=== PATIENT | female | born 1975 | race Caucasian/White ===

== ENCOUNTER 2018-05-15 16:35 | Emergency (ER) | payer MEDICAID ==
[~2018-05-15] VITALS: Ht 162.6 cm; Wt 81.8 kg
[~2018-05-15 16:35] MED LIST: METF500T PO
[2018-05-15 17:22] LABS: URINE HCG NEGATIVE (NEG)
[2018-05-15 17:23] LABS: CLARITY,URINE TURBID (Clear); COLOR,URINE YELLOW (Yellow); GLUCOSE, URINE NEGATIVE (Neg); KETONES,URINE TRACE mg/dl (Neg); LEUKOCYTE ESTERASE ,URINE MODERATE (Neg); NITRITES, URINE NEGATIVE (Neg); OCCULT BLOOD,URINE LARGE (Neg); PH,URINE 5.5 (4.8-8.0); PROTEIN,URINE 100 mg/dl (Neg); UA COLLECTION TYPE CLN CATCH MIDSTREAM; UROBILINOGEN,URINE 0.2 E.U/dL (0.2-1.0)
[2018-05-15 17:30] LABS: MUCUS STRANDS FEW /LPF (Neg); SQUAMOUS EPITHELIAL CELL,UR MODERATE /LPF (FEW)
[2018-05-15 17:33] LABS: BACTERIA,URINE FEW /HPF (Neg); WBC,URINE TNTC /HPF (0-4); YEAST MODERATE /HPF (NEGATIVE)
[2018-05-15] MEDS ORDERED: ondansetron 4mg rapidly disintigrating tab PO ONE (18:45)
[2018-05-15] MEDS ORDERED: fluconazole 100mg tablet PO ONE (18:45)
[2018-05-15] MEDS ORDERED: levoFLOXACIN 750MG TABLET PO ONE (18:45)
[2018-05-15] MEDS ORDERED: HYDROcodone/acetaminophen 5mg/325mg tablet PO ONE (18:45)
[2018-05-15 19:15] LABS: URINE AMPHETAMINE SCREEN POSITIVE (Neg); URINE BARBITUATE SCREEN NEGATIVE (Neg); URINE BENZODIAZEPINES SCREEN NEGATIVE (Neg); URINE CANNABINOID SCREEN POSITIVE (Neg); URINE COCAINE SCREEN NEGATIVE (Neg); URINE METHADONE SCREEN NEGATIVE (Neg); URINE OPIATE SCREEN NEGATIVE (Neg); URINE PHENCYCLIDINE SCREEN NEGATIVE (Neg)
[2018-05-15] MEDS ORDERED: LEVO750T21 PO (19:52)
[2018-05-15] MEDS ORDERED: tamsulosin 0.4mg capsule PO ONE (20:00)
[2018-05-15] MEDS ORDERED: CefTRIAXone 1000mg IM Kit (w/lidocaine diluent) IM ONE (20:00)
[2018-05-15] MEDS ORDERED: FLO0.4C PO (20:00)
[2018-05-15 20:14] VITALS: BP 135/78
== END 2018-05-15 20:16 | disposition home or self-care (01) ==
LOC: ER 16:36
DX: N39.0 Urinary tract infection, site not specified (principal); R31.9 Hematuria, unspecified; E11.9 Type 2 diabetes mellitus without complications; F12.10 Cannabis abuse, uncomplicated; Z95.1 Presence of aortocoronary bypass graft
CPT/HCPCS: 74176; 80305; 81001; 81025; 87088; 96372; 99285; J0696

== ENCOUNTER 2020-12-18 16:01 | Emergency (ER) | payer MEDICAID ==
[~2020-12-18] VITALS: Ht 162.6 cm; Wt 77.7 kg
[2020-12-18 16:15] VITALS: BP 115/85
[2020-12-18 16:46] LABS: BASOPHILS # (AUTO) 0.1 X10'3 (0-0.2); BASOPHILS % (AUTO) 0.6 % (0-1); EOSINOPHILS # (AUTO) 0.3 X10'3 (0-0.9); EOSINOPHILS % (AUTO) 3.1 % (0-6); HEMATOCRIT 45.3 % (35.0-45.0); HEMOGLOBIN 15.1 g/dl (12.0-16.0); LYMPHOCYTES # (AUTO) 3.3 X10'3 (1.1-4.8); LYMPHOCYTES % (AUTO) 33.7 % (21-51); MEAN CORPUSCULAR HGB CONC 33.2 g/dL (33.0-36.5); MEAN CORPUSCULAR VOLUME 90.3 FL (78-98); MEAN PLATELET VOLUME 7.7 FL (7.4-10.4); MONOCYTES # (AUTO) 0.9 X10'3 (0-0.9); MONOCYTES % (AUTO) 8.9 % (2-12); NEUTROPHILS # (AUTO) 5.3 X10'3 (1.8-7.7); NEUTROPHILS % (AUTO) 53.7 % (42-75); PLATELET COUNT 477 X10'3 (140-440); RED BLOOD COUNT 5.02 X10'6 (4.20-5.60); RED CELL DISTRIBUTION WIDTH 14.9 % (11.5-14.5); WHITE BLOOD COUNT 9.8 X10'3 (4.5-11.0)
[2020-12-18 17:08] LABS: ALANINE AMINOTRANSFERASE 21 U/L (12-78); ALBUMIN 3.5 G/DL (3.4-5.0); ALBUMIN/GLOBULIN RATIO 0.9 (1.1-1.5); ALKALINE PHOSPHATASE 111 IU/L (46-116); ANION GAP 12 (8-16); ASPARTATE AMINO TRANSFERASE 11 U/L (10-37); BILIRUBIN,TOTAL 0.3 MG/DL (0.1-1.0); BLOOD UREA NITROGEN 14 MG/DL (7-18); BUN/CREATININE RATIO 12.7 (6.6-38.0); CALCIUM 9.4 MG/DL (8.5-10.1); CHLORIDE 103 MMOL/L (99-107); GLUCOSE 135 MG/DL (70-104); LIPASE 52 U/L (73-393); POTASSIUM 4.1 MMOL/L (3.5-5.1); SODIUM 140 MMOL/L (135-145); TOTAL CARBON DIOXIDE 24.7 MMOL/L (24-32); TOTAL PROTEIN 7.4 G/DL (6.4-8.2); eGFR 53 ML/MIN
[2020-12-18 17:11] LABS: CLARITY,URINE CLOUDY (Clear); COLOR,URINE YELLOW (Yellow); GLUCOSE, URINE NEGATIVE (Neg); KETONES,URINE NEGATIVE (Neg); LEUKOCYTE ESTERASE ,URINE LARGE (Neg); NITRITES, URINE NEGATIVE (Neg); OCCULT BLOOD,URINE MODERATE (Neg); PROTEIN,URINE 100 mg/dl (Neg); UROBILINOGEN,URINE 0.2 E.U/dL (0.2-1.0)
[2020-12-18 17:23] LABS: UA COLLECTION TYPE CLN CATCH MIDSTREAM
[2020-12-18 17:24] LABS: SQUAMOUS EPITHELIAL CELL,UR MANY /LPF (FEW)
[2020-12-18 17:25] LABS: RBC,URINE 0-2 /HPF (0-2); WBC,URINE TNTC /HPF (0-4)
[2020-12-18 17:26] LABS: BACTERIA,URINE 3+ /HPF (Neg); MUCUS STRANDS FEW /LPF (Neg); TRANSITIONAL EPI CELLS,URINE FEW /HPF
[2020-12-18 17:38] LABS: URINE HCG NEGATIVE (NEG)
== END 2020-12-18 22:33 | disposition left against medical advice (07) ==
LOC: ER 16:02
DX: R10.9 Unspecified abdominal pain (principal); Z53.21 Procedure and treatment not carried out due to patient leaving prior to being seen by health care provider
CPT/HCPCS: 36415; 80053; 81001; 81025; 83690; 85025

== ENCOUNTER 2021-12-03 03:36 | Inpatient (IN) | payer MEDICAID ==
[~2021-12-03] VITALS: Ht 162.6 cm; Wt 78.6 kg
[2021-12-03] VITALS (17 sets, daily range): BP systolic 99–136; BP diastolic 54–87
[2021-12-03] MEDS ORDERED: heparin 10,000 units/1 ML INJ IV ONE ×2 (03:50→04:00)
[2021-12-03] MEDS ORDERED: aspirin 81mg tab.chew PO ONE (03:50)
[2021-12-03] MEDS ORDERED: heparin 10,000 units/1 ML INJ IV PRN (03:50)
[2021-12-03] MEDS ORDERED: heparin 25,000 UNIT/250ml bag 250 ML IV SCH (03:50)
[2021-12-03 03:52] LABS: BASOPHILS # (AUTO) 0.1 X10'3 (0-0.2); BASOPHILS % (AUTO) 0.7 % (0-1); EOSINOPHILS # (AUTO) 0.2 X10'3 (0-0.9); EOSINOPHILS % (AUTO) 2.3 % (0-6); HEMATOCRIT 35.8 % (35.0-45.0); HEMOGLOBIN 11.5 g/dl (12.0-16.0); LYMPHOCYTES # (AUTO) 4.3 X10'3 (1.1-4.8); LYMPHOCYTES % (AUTO) 40.8 % (21-51); MEAN CORPUSCULAR HEMOGLOBIN 27.2 PG (27.0-31.0); MEAN CORPUSCULAR VOLUME 84.8 FL (78-98); MEAN PLATELET VOLUME 7.7 FL (7.4-10.4); MONOCYTES # (AUTO) 0.9 X10'3 (0-0.9); MONOCYTES % (AUTO) 8.9 % (2-12); NEUTROPHILS # (AUTO) 4.9 X10'3 (1.8-7.7); NEUTROPHILS % (AUTO) 47.3 % (42-75); PLATELET COUNT 445 X10'3 (140-440); RED BLOOD COUNT 4.22 X10'6 (4.20-5.60); RED CELL DISTRIBUTION WIDTH 14.7 % (11.5-14.5); WHITE BLOOD COUNT 10.5 X10'3 (4.5-11.0)
[2021-12-03 04:07] LABS: ALANINE AMINOTRANSFERASE 19 U/L (12-78); ALBUMIN 2.9 G/DL (3.4-5.0); ALBUMIN/GLOBULIN RATIO 0.9 (1.1-1.5); ALKALINE PHOSPHATASE 118 IU/L (46-116); ANION GAP 10 (8-16); ASPARTATE AMINO TRANSFERASE 10 U/L (10-37); BILIRUBIN,TOTAL 0.2 MG/DL (0.1-1.0); BLOOD UREA NITROGEN 14 MG/DL (7-18); BUN/CREATININE RATIO 16.1 (6.6-38.0); CALCIUM 8.1 MG/DL (8.5-10.1); CHLORIDE 109 MMOL/L (99-107); CREATININE 0.87 MG/DL (0.40-0.90); GLUCOSE 160 MG/DL (70-104); POTASSIUM 4.2 MMOL/L (3.5-5.1); SODIUM 140 MMOL/L (135-145); TOTAL CARBON DIOXIDE 21.5 MMOL/L (24-32); TOTAL PROTEIN 6.1 G/DL (6.4-8.2); eGFR 69 ML/MIN
--- NOTE | 2021-12-03 04:08 | NUR ---
Patient recvd 324mg PO aspirin [employer], 81mg aspirin held after discussing with Tommy.
[2021-12-03] MEDS ORDERED: ATOR-2 PO (04:17)
[2021-12-03] MEDS ORDERED: LEVO-144 PO (04:17)
[2021-12-03] MEDS ORDERED: PANT40TA54 PO (04:17)
[2021-12-03] MEDS ORDERED: OXYB-58 PO (04:17)
[2021-12-03] MEDS ORDERED: GLIP10TA11 PO (04:17)
[2021-12-03] MEDS ORDERED: EMPA10TA PO (04:17)
[2021-12-03] MEDS ORDERED: METO25TA6 PO (04:17)
[2021-12-03] MEDS ORDERED: SERT-434 PO (04:17)
[2021-12-03] MEDS ORDERED: METF-438 PO (04:17)
[2021-12-03] MEDS ORDERED: SPIR25TA5 PO (04:17)
[2021-12-03] MEDS ORDERED: LISI2.5T14 PO (04:17)
[2021-12-03] MEDS ORDERED: midazolam 1 mg/ML 2ml injection ONE (04:36)
[2021-12-03] MEDS ORDERED: fentaNYL/PF 50MCG/1 ML 2ML syringe ONE (04:36)
[2021-12-03] MEDS ORDERED: iohexol 350 MG/1 ML 200ml bottle ONE (04:36)
[2021-12-03] MEDS ORDERED: LIDOcaine 1% 30ml preserv. free vial ONE (04:36)
[2021-12-03] MEDS ORDERED: nitroGLYCERIN-Tridil 50MG/D5W 250 ML IV ONE (04:39)
[2021-12-03] MEDS ORDERED: heparin 1,000unit/ml 10ml vial 10 ML ONE (04:39)
[2021-12-03 04:42] LABS: APTT 63 SECONDS (22-32)
[2021-12-03] MEDS ORDERED: iohexol 350 MG/ML 50ML vial IV ONE (05:39)
[2021-12-03] MEDS ORDERED: ticagrelor 90mg tablet ONE (06:06)
[2021-12-03] MEDS ORDERED: DEXTROSE 15 GM of carb/4 tabs (each vial/BOTTLE has 4 tablets) PO PRN ×2 (06:25)
[2021-12-03] MEDS ORDERED: dextrose 50%-water 50ml dispensing syringe IV PRN ×2 (06:25)
[2021-12-03] MEDS ORDERED: glucagon, human recombinant 1mg kit SUBCUT PRN (06:25)
[2021-12-03] MEDS ORDERED: ondansetron/PF 4mg/2ml inj IV PRN (06:25)
[2021-12-03] MEDS ORDERED: magnesium hydroxide 30ml (MOM) UD suspension PO PRN (06:25)
[2021-12-03] MEDS ORDERED: mag hydrox/Alum hydrox/simeth 30ml oral suspension PO PRN (06:25)
[2021-12-03] MEDS ORDERED: magnesium 4gm in 100ml NS 100 ML IV PRN (06:25)
[2021-12-03] MEDS ORDERED: magnesium 2GM in 50ml NS 50 ML IV PRN (06:25)
[2021-12-03] MEDS ORDERED: acetaminophen 325mg tablet PO PRN ×4 (06:25→07:30)
[2021-12-03] MEDS ORDERED: potassium CL 10mEq/100ml bag 100 ML IV PRN (06:25)
[2021-12-03] MEDS ORDERED: normal saline 1000ml 1,000 ML IV SCH (06:25)
[2021-12-03] MEDS ORDERED: magnesium Cl slow-release 64mg tablet PO PRN (06:25)
[2021-12-03] MEDS ORDERED: MESSAGE TO PHARMACY PO ONE (06:25)
[2021-12-03] MEDS ORDERED: POTASSIUM BICARB 20meq eff tab 20 MEQ TABLET.EFF PO PRN ×2 (06:25)
[2021-12-03] MEDS ORDERED: normal saline 1,000 ML IV SCH (06:45)
[2021-12-03] MEDS ORDERED: HYDROcodone/acetaminophen 10/325mg tab PO PRN ×4 (07:00→07:30)
[2021-12-03] MEDS: normal saline 1000ml 1,000 ML IV SCH ×2 (07:10→17:10)
[2021-12-03] MEDS ORDERED: OXAZEpam 15mg capsule PO PRN (07:30)
[2021-12-03] MEDS ORDERED: clopidogrel 75mg tablet PO SCH (08:00)
[2021-12-03] MEDS ORDERED: docusate sod 100mg capsule PO SCH ×2 (08:00)
[2021-12-03] MEDS ORDERED: lisinopril 10 MG tablet PO SCH (08:00)
[2021-12-03] MEDS: docusate sod 100mg capsule PO SCH ×2 (08:00→20:00)
[2021-12-03] MEDS: K and/or MAG REPLACEMENT MC SCH ×2 (08:00→19:54)
[2021-12-03] MEDS ORDERED: aspirin 81mg, enteric-coated 1 TAB TABLET.DR PO SCH (08:00)
[2021-12-03] MEDS ORDERED: metoprolol succinate 25mg (24-HOUR) SR. Tablet PO SCH (08:00)
[2021-12-03] MEDS ORDERED: metoprolol tartrate 25mg tablet PO SCH (08:00)
[2021-12-03] MEDS ORDERED: ticagrelor 90mg tablet PO SCH (08:00)
[2021-12-03] MEDS ORDERED: atorvastatin 10mg tablet PO SCH (08:00)
[2021-12-03] MEDS ORDERED: sertraline 50mg tablet PO SCH ×2 (08:00→21:00)
[2021-12-03] MEDS ORDERED: ASPI-1071 PO (08:26)
[2021-12-03] MEDS ORDERED: TICA90TA PO (08:26)
--- NOTE | 2021-12-03 09:25 | NUR ---
Patient resistive to care. States she has to void but refusing bedpan. RN unable to ambulate patient due to right groin femoral puncture. Patient states "she doesn't fucking care" if she bleeds. Patient will not allow RN to monitor BP at this time. Will continue to monitor procedure site.
--- NOTE | 2021-12-03 09:40 | NUR ---
Patient continues to refuse care and she crumpled up stent identification card provided to patient and threw it on the floor. Patient stated "she is going to leave even if it is against medical advice" and "doesn't need to be admitted to the [facility]." RN educated patient on importance of continued monitoring of cardiac function in light of recent STEMI and placement of stent. RN will continue to monitor patient.
--- NOTE | 2021-12-03 09:45 | NUR ---
Dr. Jett paged to notify that patient stated she wants to leave AMA.
--- NOTE | 2021-12-03 12:20 | NUR ---
Patient affect is calmer and she is allowing RN to provide care. Patient has agreed to inpatient admission s/p STEMI with PCI. RN will continue to monitor patient.
[2021-12-03] MEDS: oxybutynin 5mg tablet PO SCH (12:21)
[2021-12-03] MEDS: levoTHYROXINE 25mcg tablet PO SCH (12:21)
[2021-12-03] MEDS: spironolactone 25 MG tablet PO SCH (12:21)
[2021-12-03] MEDS: lisinopril 2.5mg tablet PO SCH (12:22)
[2021-12-03] MEDS: atorvastatin 20mg tablet PO SCH (12:22)
[2021-12-03] MEDS: pantoprazole 40mg Tablet.DR PO SCH ×2 (12:22→20:32)
--- NOTE | 2021-12-03 17:15 | NUR ---
Report called to ELIANA Veras. Patient a/o x 4 with stable vital signs at transfer of care.
--- NOTE | 2021-12-03 17:16 | NUR ---
Patient in room PACU 1. I have received report from Briana in short stay and had the opportunity to ask questions and assume patient care.
[2021-12-03] MEDS ORDERED: metFORMIN 500mg tablet PO SCH (17:30)
[2021-12-03] MEDS: metoprolol tartrate 12.5mg (1/2 tablet) PO SCH (20:00)
[2021-12-03] MEDS: insulin Lispro (HumaLOG) vial - multi-dose SQ SCH (20:26)
[2021-12-03] MEDS: ticagrelor 90mg tablet PO SCH (20:34)
[2021-12-03] MEDS ORDERED: insulin glargine (Lantus) pen - multi-dose SQ SCH (21:00)
[2021-12-04 02:00] VITALS: BP 104/62
[2021-12-04] MEDS: normal saline 1000ml 1,000 ML IV SCH (02:37)
[2021-12-04] MEDS: levoTHYROXINE 25mcg tablet PO SCH (07:00)
[2021-12-04 07:38] LABS: BASOPHILS % (AUTO) 0.5 % (0-1); EOSINOPHILS # (AUTO) 0.2 X10'3 (0-0.9); EOSINOPHILS % (AUTO) 2.5 % (0-6); HEMATOCRIT 37.5 % (35.0-45.0); HEMOGLOBIN 11.7 g/dl (12.0-16.0); LYMPHOCYTES # (AUTO) 3.4 X10'3 (1.1-4.8); MEAN CORPUSCULAR HEMOGLOBIN 26.8 PG (27.0-31.0); MEAN CORPUSCULAR HGB CONC 31.2 g/dL (33.0-36.5); MEAN CORPUSCULAR VOLUME 85.7 FL (78-98); MONOCYTES # (AUTO) 0.6 X10'3 (0-0.9); MONOCYTES % (AUTO) 6.6 % (2-12); NEUTROPHILS # (AUTO) 5.5 X10'3 (1.8-7.7); NEUTROPHILS % (AUTO) 55.4 % (42-75); PLATELET COUNT 452 X10'3 (140-440); RED BLOOD COUNT 4.38 X10'6 (4.20-5.60); RED CELL DISTRIBUTION WIDTH 14.9 % (11.5-14.5); WHITE BLOOD COUNT 9.8 X10'3 (4.5-11.0)
[2021-12-04 07:55] LABS: ALANINE AMINOTRANSFERASE 19 U/L (12-78); ALBUMIN/GLOBULIN RATIO 0.9 (1.1-1.5); ALKALINE PHOSPHATASE 118 IU/L (46-116); ANION GAP 10 (8-16); ASPARTATE AMINO TRANSFERASE 11 U/L (10-37); BILIRUBIN,TOTAL 0.3 MG/DL (0.1-1.0); BLOOD UREA NITROGEN 20 MG/DL (7-18); BUN/CREATININE RATIO 25.3 (6.6-38.0); CHLORIDE 109 MMOL/L (99-107); CHOL/HDL RATIO 3.2 (0.00-4.99); CHOLESTEROL 143 MG/DL (0-200); CREATININE 0.79 MG/DL (0.40-0.90); GLUCOSE 136 MG/DL (70-104); HDL CHOLESTEROL 45 MG/DL (35-60); LDL CHOLESTEROL 77 MG/DL (50-100); POTASSIUM 4.3 MMOL/L (3.5-5.1); SODIUM 144 MMOL/L (135-145); TOTAL CARBON DIOXIDE 25.1 MMOL/L (24-32); TOTAL PROTEIN 6.5 G/DL (6.4-8.2); TRIGLYCERIDES 78 MG/DL (20-135); eGFR 78 ML/MIN
[2021-12-04] MEDS ORDERED: nitroGLYCERIN 0.4mg SUBLingual tab SL ONE (08:00)
[2021-12-04] MEDS ORDERED: heparin 10,000 units/1 ML INJ ONE (08:00)
[2021-12-04] MEDS: metoprolol tartrate 12.5mg (1/2 tablet) PO SCH ×2 (08:00→19:06)
[2021-12-04] MEDS: pantoprazole 40mg Tablet.DR PO SCH (08:00)
[2021-12-04] MEDS: atorvastatin 20mg tablet PO SCH (08:00)
[2021-12-04] MEDS ORDERED: aspirin 81mg, enteric-coated 1 TAB TABLET.DR PO SCH (08:00)
[2021-12-04] MEDS: lisinopril 2.5mg tablet PO SCH (08:00)
[2021-12-04] MEDS: docusate sod 100mg capsule PO SCH ×2 (08:00→19:07)
[2021-12-04] MEDS: oxybutynin 5mg tablet PO SCH (08:00)
[2021-12-04] MEDS: ticagrelor 90mg tablet PO SCH ×2 (08:00→19:04)
[2021-12-04] MEDS ORDERED: EMPAGLIFLOZIN 10 MG TABLET PO SCH (08:00)
[2021-12-04] MEDS ORDERED: heparin, porcine-25,000 units/D5-250ml premix IV ONE (08:00)
[2021-12-04] MEDS: spironolactone 25 MG tablet PO SCH (09:17)
[2021-12-04] MEDS: insulin Lispro (HumaLOG) vial - multi-dose SQ SCH (14:46)
[2021-12-04 19:10] VITALS: BP 117/64
--- NOTE | 2021-12-04 19:20 | NUR ---
patient discharged home. Transported by taxi to [facility] pharmacy, then home. Vitals stable, no signs or symptoms of problems.
--- NOTE | 2021-12-04 19:32 | NUR ---
Patient IV's removed Tele taken off and went over discharge answered all questions and charge nurse ordered a taxi to [facility] pharmacy and home for patient.
== END 2021-12-04 19:15 | disposition home or self-care (01) | DRG 174 ==
LOC: ER 03:37 → PACU 06:25 → PCU 3S 17:40
PROVIDERS: ADMIT Internal Medicine; ATTEND Family Medicine
PROC: 4A023N7 Measurement of Cardiac Sampling and Pressure, Left Heart, Percutaneous Approach (ICD-10-PCS; principal; 2021-12-03)
PROC: 027034Z Dilation of Coronary Artery, One Artery with Drug-eluting Intraluminal Device, Percutaneous Approach (ICD-10-PCS; 2021-12-03)
PROC: B2111ZZ Fluoroscopy of Multiple Coronary Arteries using Low Osmolar Contrast (ICD-10-PCS; 2021-12-03)
PROC: B2151ZZ Fluoroscopy of Left Heart using Low Osmolar Contrast (ICD-10-PCS; 2021-12-03)
PROC: B3101ZZ Fluoroscopy of Thoracic Aorta using Low Osmolar Contrast (ICD-10-PCS; 2021-12-03)
PROC: B2131ZZ Fluoroscopy of Multiple Coronary Artery Bypass Grafts using Low Osmolar Contrast (ICD-10-PCS; 2021-12-03)
DX: I21.3 ST elevation (STEMI) myocardial infarction of unspecified site (principal); I25.810 Atherosclerosis of coronary artery bypass graft(s) without angina pectoris; E11.9 Type 2 diabetes mellitus without complications; E03.9 Hypothyroidism, unspecified; F32.A Depression, unspecified; E78.5 Hyperlipidemia, unspecified; F15.90 Other stimulant use, unspecified, uncomplicated; F12.90 Cannabis use, unspecified, uncomplicated; F17.200 Nicotine dependence, unspecified, uncomplicated; I10 Essential (primary) hypertension; Z79.899 Other long term (current) drug therapy; Z80.6 Family history of leukemia; Z87.442 Personal history of urinary calculi; Z88.2 Allergy status to sulfonamides; Z95.1 Presence of aortocoronary bypass graft; Z71.51 Drug abuse counseling and surveillance of drug abuser; Z71.6 Tobacco abuse counseling; Z79.890 Hormone replacement therapy
CPT/HCPCS: 36415; 71045; 80053; 80061; 82948; 83880; 84484; 85025; 85347; 85610; 85730; 93005; 93459; 96365; 96366; 96376; 99152; 99153; 99291; A4620; A6258; C1725; C1751; C1760; C1769; C1874; C1894; C9606; G0378; J1644; J1815; J2250; J3010; J3490; J7030; Q9967

== ENCOUNTER 2022-09-14 02:54 | Emergency (ER) | payer MEDICAID ==
[~2022-09-14] VITALS: Ht 162.6 cm; Wt 68.2 kg
[~2022-09-14 02:54] MED LIST changes: +ASPI-1071 PO; +ATOR-2 PO; +EMPA10TA PO; +GLIP10TA11 PO; +LEVO-144 PO; +LISI2.5T14 PO; +METF-438 PO; -METF500T PO; +METO25TA6 PO; +OXYB-58 PO; +PANT40TA54 PO; +SERT-434 PO; +SPIR25TA5 PO; +TICA90TA PO
[2022-09-14 03:09] VITALS: BP 125/85
--- NOTE | 2022-09-14 03:28 | NUR ---
Patient came to the exam room crying and carrying on about ear pain, I asked her calm down so she could answer questions and that made her mad. She started cusing and throwing thing in the exam room. Security was called and that made her even madder, she was escorted out of ER by security.
== END 2022-09-14 03:31 | disposition left against medical advice (07) ==
LOC: ER 02:55
DX: H92.01 Otalgia, right ear (principal); Z53.21 Procedure and treatment not carried out due to patient leaving prior to being seen by health care provider